=== PATIENT | female | born 1940 | race Caucasian/White ===

== ENCOUNTER 2023-05-19 18:55 | Emergency (ER) | payer OTHER, SELFPAY ==
[2023-05-19 19:01] VITALS: BP 125/65
[2023-05-19 19:02] VITALS: BP 125/65; BMI 31.3
[2023-05-19 19:16] LABS: Hemoglobin 13.2 g/dL (12.0-16.0); Mean Corp Hgb Conc. 34.7 g/dL (33.0-37.0); Mean Corpuscular Hgb 30.3 pg (27.0-31.0); Mean Corpuscular Volume 87.4 fL (81.0-99.0); Mean Platelet Volume 10.5 fL (7.4-10.4); Platelet Count 244 10^3/uL (130-400); Red Blood Cell Count 4.35 10^6/uL (4.20-5.40); Red Cell Dist. Width 12.6 % (11.5-14.5); White Blood Cell Count 9.4 10^3/uL (4.8-10.8)
[2023-05-19 19:32] LABS: ALT (SGPT) 18 U/L (0-35); AST (SGOT) 27 U/L (14-36); Albumin 3.9 g/dl (3.5-5.0); Alkaline Phosphatase 116 U/L (38-126); Blood Urea Nitrogen 14 mg/dl (7-17); Calcium 8.9 mg/dl (8.4-10.2); Carbon Dioxide 24 mmol/L (22-30); Chloride 104 mmol/L (98-107); Estimated Creatinine Clearance 59 ml/min; Glucose 178 mg/dl (70-99); Potassium 3.1 mmol/L (3.5-5.1); Sodium 138 mmol/L (135-145); Total Bilirubin 0.5 mg/dl (0.2-1.3); Total Protein 6.8 g/dl (6.3-8.2); eGFR > 60.00
--- NOTE | 2023-05-19 19:32 | ED.GENMED ---
History of Present Illness
General
Chief Complaint: Change in Mental Status
Source: patient
Exam Limitations: none
Time Seen by Provider: 05/19/23 19:21
Travel History
Have you had any contact with someone who has COVID-19?: No
Do you have any symptoms of coronavirus? Fever > 100 degrees, chills, cough, shortness of breath, sore throat, loss of taste or smell, muscle aches, or headache?: No
History of Present Illness
History of Present Illness:
83-year-old female presents via EMS from a store after an episode of weakness and near syncope. She states she was walking around the store and felt gas discomfort in her abdomen and became lightheaded and sweaty. She had to sit her self down.
She was in the bathroom when this happened. She feels as though this was related to a donut she had earlier in the day. There is no chest pain. No significant abdominal pain or vomiting. Since arriving here she states she feels back to her
normal baseline. She lives at home by herself. History of hypertension. No unilateral weakness. No recent fever. She notes a good appetite recently.
Phy Exam
Physical Exam
Physical Exam:
General: Well-appearing female no acute respiratory distress
HEENT: Normocephalic atraumatic, mucosa moist
Heart: RRR, no murmurs
Lungs; CTA bilaterally
Abdomen is soft nontender nondistended no guarding rebound normal bowel sounds
Neurologic exam alert and oriented x 3 no facial asymmetry finger-nose [id number] intact no drift on exam
Extremities: No cyanosis or edema
Course
Orders/Labs/Results
Orders:
Orders
05/19/23 19:10
CMP [Comprehensive Metabolic Panel] Urgent
Complete Blood Count/No Diff Urgent
05/19/23 19:30
Electrocardiogram (*1) Urgent
Reason for Study: Syncope
05/19/23 19:31
EKG- Treatment ONCE
05/19/23 19:46
Troponin I Urgent
Abnormal Lab Results
05/19/23
19:10
MPV 10.5 H fL
(7.4-10.4)
Potassium 3.1 L mmol/L
(3.5-5.1)
Glucose 178 H mg/dl
(70-99)
05/19/23 19:10
05/19/23 19:10
Vital Signs
Initial and Last Documented VS:
Initial Vital Signs
Pulse Resp BP Pulse Ox
93 19 125/65 95
05/19/23 19:01 05/19/23 19:01 05/19/23 19:01 05/19/23 19:01
Last Documented Vital Signs
Temp Pulse Resp BP Pulse Ox
97.8 F 72 16 129/60 97
05/19/23 19:02 05/19/23 20:15 05/19/23 20:15 05/19/23 20:00 05/19/23 20:15
MDM/Problems Addressed
Differential Diagnosis Includes:
Episode of weakness at mattress store. Consider vasovagal event. She had an ingestion from a donor. Will check EKG and troponin. Will check labs. Feels back to baseline now without any complaints currently
*Critical Care Note
Total Time (30-74mins, 75-104mins- exclusive of procedures): Not Applicable
Update Note
Update Note:
Patient still feels back to baseline no complaints. Workup here shows EKG with sinus rhythm no ischemic changes. Troponin undetectable. Labs otherwise normal. Patient expresses her desire to go home. Do not suspect ACS or PE given resolution of
symptoms. Possible vasovagal episode.
ED Attending Note
-
Portions of this chart may have been created with voice recognition software.� Occasional wrong word or��sound alike� substitutions may have occurred due to the inherent limitations of voice recognition software.
Discharge Plan
Departure
Patient Disposition: Home (Routine Discharge)
Date of Disposition: 05/19/23
Time of Disposition: 21:11
Patient with high blood pressure during this ER visit?: No
Discharge Problem:
Lightheadedness
Referrals:
Anh Hurd DO [Family Provider] -
Activity Restrictions/Additional Instructions:
Stay hydrated. Return for worsening symptoms otherwise follow-up with your doctor
Interventions
Interventions:
*Risk Screen - Suicide Last Done: 05/19/23 19:02
*General Assessment Last Done: 05/19/23 19:02
*Neglect/Abuse Screening Last Done: 05/19/23 19:02
ED- Neurological Assessment Last Done: 05/19/23 19:30
[2023-05-19 20:00] VITALS: BP 129/60
[2023-05-19 20:17] LABS: Troponin I < 0.012 ng/ml
[2023-05-19 21:34] VITALS: BP 147/63
== END 2023-05-19 21:35 | disposition home or self-care (01) ==
LOC: EMR 18:55
PROVIDERS: Physician Assistant; EMERGENCY PHYSICIAN Emergency Medicine; FAMILY PHYSICIAN Student in an Organized Health Care Education/Training Program
DX: R42 Dizziness and giddiness (principal)
CPT/HCPCS: 99284; 80053; 84484; 85027; 93005

== ENCOUNTER 2024-05-22 17:16 | Emergency (ER) | payer OTHER, SELFPAY ==
[2024-05-22 17:18] VITALS: BP 151/70; BMI 27.6
--- NOTE | 2024-05-22 17:30 | ED.GENMED ---
History of Present Illness
General
Chief Complaint: Fainting Sensation
Source: patient
Exam Limitations: none
Time Seen by Provider: 05/22/24 17:19
Nursing documentation reviewed up to this point in time: agreed with
History of Present Illness
History of Present Illness:
84-year-old female felt weak and dizzy like she may pass out while at the grocery store just prior to arrival no chest pain or shortness of breath no vomiting today she feels bit nauseous, no dark or bloody stools no hematuria she is hard of
hearing, she moving all extremities, calm cooperative, recognizes her son who is with her
Past History
Past History
ED Past Medical History: HTN and Psychiatric
Social History
Tobacco: Non-smoker
Alcohol: None
Drug: None
Living: with family
Employment: Retired
Family History
Family History: Other (Noncontributory)
Review of Systems
Review of Systems
All Other Systems: Not applicable
Constitutional: Denies fever or fatigue
EENT: Reports runny nose
Respiratory: Reports no symptoms
Cardiac: Reports no symptoms
ABD/GI: Reports nausea; Denies abdominal pain, diarrhea, bloody stools or black stools
: Reports no symptoms; Denies bleeding
Musculoskeletal: Reports no symptoms
Skin: Reports no symptoms
Neurological: Reports no symptoms; Denies dizzy or weakness
Hematologic/Lymphatic: Reports no symptoms; Denies bleeding
Phy Exam
Physical Exam
Physical Exam:
Physical Exam
General: no apparent distress, not acutely ill
Neck: No jaundice
Heart: s1/s2 regular rate and rhythm, no murmur. equal radial pulses.
Lungs: no acute respiratory distress. clear bilaterally
Abdomen: Nontender
Neuro: alert and oriented. no focal neurological deficits
Skin: no rash
Psychiatric: well kept. interactive and cooperative
Extremities: no edema.
Course
Orders/Labs/Results
Orders:
Orders
05/22/24 17:21
Electrocardiogram (*1) Urgent
Reason for Study: Fatigue / Weakness
05/22/24 17:22
EKG- Treatment ONCE
05/22/24 17:27
CMP [Comprehensive Metabolic Panel] Urgent
Complete Blood Count/With Diff Urgent
05/22/24 17:48
Orthostatic VS- Treatment ONCE
Abnormal Lab Results
05/22/24
17:27
MPV 10.5 H fL
(7.4-10.4)
Absolute Lymphs (auto) 3.5 H 10^3/uL
(1.2-3.4)
Glucose 170 H mg/dl
(70-99)
05/22/24 17:27
05/22/24 17:27
Vital Signs
Initial and Last Documented VS:
Initial Vital Signs
Temp Pulse Resp BP Pulse Ox
98.1 F 72 18 151/70 95
05/22/24 17:18 05/22/24 17:18 05/22/24 17:18 05/22/24 17:18 05/22/24 17:18
Last Documented Vital Signs
Temp Pulse Resp BP Pulse Ox
98.1 F 73 15 120/68 100
05/22/24 17:18 05/22/24 17:53 05/22/24 17:53 05/22/24 17:56 05/22/24 17:56
MDM/Problems Addressed
Differential Diagnosis Includes:
Vasovagal arrhythmia electrolyte abnormality
*Pulse Oximetry
Patient hypoxic: no
*EKG
Interpreted by ED Provider?: Yes
Interpretation: normal
Comparison EKG: no comparison EKG present
Heart Rate: 78
Rate: normal
Rhythm: sinus
Ischemia: non-specific ST changes
*Shot Core Drill Operator Helper Interpretation
Rate: normal
Interpretation: normal
Heart Rate: 78
Rhythm: sinus
*Critical Care Note
Total Time (30-74mins, 75-104mins- exclusive of procedures): Not Applicable
Update Note
Update Note:
6:30 PM vital signs are stable not orthostatic we will keep on the cardiac cath lab radiology technologist here EKG and labs are noted
730 patient remains stable
ED Attending Note
-
Portions of this chart may have been created with voice recognition software.� Occasional wrong word or��sound alike� substitutions may have occurred due to the inherent limitations of voice recognition software.
Discharge Plan
Departure
Patient Disposition: Home (Routine Discharge)
Date of Disposition: 05/22/24
Time of Disposition: 19:23
Patient with high blood pressure during this ER visit?: No
Condition: Good
Covid-19: Not Applicable
Discharge Problem:
Near syncope
Instructions: Near Fainting (DC)
Referrals:
Anh Hurd DO [Family Provider] - Next open appointment
Activity Restrictions/Additional Instructions:
Drink plenty of fluids
Interventions
Interventions:
*Risk Screen - Suicide Last Done: 05/22/24 17:18
*General Assessment Last Done: 05/22/24 17:18
*Neglect/Abuse Screening Last Done: 05/22/24 17:53
*ED- Fall Risk Assessment Last Done: 05/22/24 17:18
*ED COVID-19 Vaccine History Last Done: 05/22/24 17:18
ED- Cardiac Assessment Last Done: 05/22/24 17:18
ED- Neurological Assessment Last Done: 05/22/24 17:18
Discharge Date and Time
Print Language: [place]
[2024-05-22 17:40] LABS: % Basophils 0.8 % (0-2); % Eosinophils 1.5 % (0-6); % Immature Granulocytes 0.3 % (0-0.5); % Lymphocytes 39.9 % (20.5-51.1); % Monocytes 6.6 % (1.7-9.3); % Neutrophils 50.9 % (42.2-75.2); Absolute Basophils 0.1 10^3/uL (0-0.2); Absolute Eosinophils 0.1 10^3/uL (0-0.7); Absolute Lymphocytes 3.5 10^3/uL (1.2-3.4); Absolute Monocytes 0.6 10^3/uL (0.1-0.6); Absolute Neutrophils 4.5 10^3/uL (1.4-6.5); Hematocrit 38.4 % (37.0-47.0); Hemoglobin 13.1 g/dL (12.0-16.0); Mean Corp Hgb Conc. 34.1 g/dL (33.0-37.0); Mean Corpuscular Hgb 30.5 pg (27.0-31.0); Mean Corpuscular Volume 89.3 fL (81.0-99.0); Mean Platelet Volume 10.5 fL (7.4-10.4); Nucleated Red Blood Cells % 0 %; Platelet Count 244 10^3/uL (130-400); Red Cell Dist. Width 12.7 % (11.5-14.5); White Blood Cell Count 8.8 10^3/uL (4.8-10.8)
[2024-05-22 17:51] VITALS: BP 150/73
[2024-05-22 17:51] LABS: ALT (SGPT) 19 U/L (0-35); AST (SGOT) 28 U/L (14-36); Albumin 3.8 g/dl (3.5-5.0); Alkaline Phosphatase 116 U/L (38-126); Blood Urea Nitrogen 12 mg/dl (7-17); Calcium 9.2 mg/dl (8.4-10.2); Carbon Dioxide 28 mmol/L (22-30); Chloride 101 mmol/L (98-107); Estimated Creatinine Clearance 54 ml/min; Glucose 170 mg/dl (70-99); Potassium 3.8 mmol/L (3.5-5.1); Sodium 136 mmol/L (135-145); Total Bilirubin 0.6 mg/dl (0.2-1.3); Total Protein 6.6 g/dl (6.3-8.2); eGFR > 60.00
[2024-05-22 17:53] VITALS: BP 134/61
[2024-05-22 17:56] VITALS: BP 120/68
[2024-05-22 17:59] VITALS: BP 120/68; BP 134/61; BP 150/73; PULSE 70; PULSE 75; PULSE 77
[2024-05-22 19:41] VITALS: BP 147/65
== END 2024-05-22 20:12 | disposition home or self-care (01) ==
LOC: EMR 17:16
PROVIDERS: EMERGENCY PHYSICIAN Emergency Medicine; FAMILY PHYSICIAN Student in an Organized Health Care Education/Training Program
DX: R55 Syncope and collapse (principal); I10 Essential (primary) hypertension
CPT/HCPCS: 99283; 80053; 85025; 93005